=== PATIENT | female | born 1970 | race Caucasian/White ===

== ENCOUNTER 2025-03-11 19:53 | Emergency (ER) | payer MEDICAID ==
[~2025-03-11] VITALS: Ht 157.5 cm; Wt 69.0 kg
[2025-03-11 20:18] VITALS: O2SAT 99
[2025-03-11] MEDS: ACETAMINOPHEN 325MG TABLET PO ONE (21:16)
[2025-03-11] MEDS: KETOROLAC 30MG/ML VIAL IM ONE (21:16)
[2025-03-11 21:31] LABS: CLARITY URINE CLEAR (CLEAR); COLOR URINE YELLOW (YELLOW); GLUCOSE URINE NEGATIVE (NEGATIVE); KETONES URINE NEGATIVE (NEGATIVE); LEUKOCYTE ESTERASE URINE 2+ (NEGATIVE); NITRITE URINE NEGATIVE (NEGATIVE); OCCULT BLOOD URINE NEGATIVE (NEGATIVE); PH URINE 5.5 (4.5-8.0); PROTEIN URINE NEGATIVE (NEGATIVE); SPECIFIC GRAVITY URINE 1.022 (1.005-1.030)
[2025-03-11 22:05] LABS: RBC URINE 0-2 /hpf (0-2); SQUAMOUS EPITHELIAL CELL URINE 1+ /lpf (RARE/1+)
[2025-03-11 22:06] LABS: BACTERIA URINE TRACE
[2025-03-11] MEDS ORDERED: NAPR-679 MT (22:06)
[2025-03-11] MEDS ORDERED: ACET-2708 MT (22:06)
[2025-03-11 22:21] VITALS: BP 105/58; PULSE 71; RESP 19; TEMP 36.7; O2SAT 99
== END 2025-03-11 22:22 | disposition home or self-care (01) ==
LOC: ER 19:53
DX: S39.012A Strain of muscle, fascia and tendon of lower back, initial encounter (principal); E78.00 Pure hypercholesterolemia, unspecified; R33.9 Retention of urine, unspecified; Z79.1 Long term (current) use of non-steroidal anti-inflammatories (NSAID); Z86.73 Personal history of transient ischemic attack (TIA), and cerebral infarction without residual deficits; X58.XXXA Exposure to other specified factors, initial encounter; Y93.89 Activity, other specified; Y92.89 Other specified places as the place of occurrence of the external cause; Y99.8 Other external cause status
CPT/HCPCS: 99284; 81003; 87086; 72100; 96372; J1885

== ENCOUNTER 2025-07-07 17:10 | Emergency (ER) | payer MEDICAID, OTHER ==
[~2025-07-07] VITALS: Ht 157.5 cm; Wt 69.0 kg
[~2025-07-07 17:10] MED LIST: ACET-2708 MT; NAPR-679 MT
[2025-07-07 17:14] VITALS: O2SAT 98
[2025-07-07 17:36] LABS: BASOPHILS % 0.4 % (0.0-2.0); EOSINOPHILS % 2.4 % (0.0-5.0); HEMATOCRIT. 39.3 % (36.0-48.0); HEMOGLOBIN. 12.7 g/dL (12.0-16.0); LYMPHOCYTES % 19.0 % (20.0-50.0); MEAN PLATELET VOLUME 8.4 fl (7.4-10.4); MONOCYTES % 5.0 % (2.0-8.0); NEUTROPHILS % 73.2 % (40.0-76.0); PLATELET 291 x1000/uL (130-400); RED BLOOD CELL COUNT 4.75 mill/uL (4.2-5.4); RED CELL DISTRIBUTION WIDTH 13.3 % (11.6-14.6)
[2025-07-07 18:01] LABS: CREATININE 0.7 mg/dL (0.6-1.0); TROPONIN I HIGH SENSITIVITY < 4 ng/L (3.0-34); UREA NITROGEN BLOOD 11 mg/dL (9-23)
[2025-07-07] MEDS ORDERED: IBUP-1455 MT (18:12)
[2025-07-07] MEDS ORDERED: METH-653 MT (18:12)
[2025-07-07 18:43] VITALS: BP 119/69; PULSE 83; RESP 14; TEMP 36.9; O2SAT 100
[2025-07-07] MEDS: METHOCARBAMOL 500MG TABLET PO ONE (18:44)
[2025-07-07] MEDS: KETOROLAC 30MG/ML VIAL IM ONE (18:44)
== END 2025-07-07 18:44 | disposition home or self-care (01) ==
LOC: ER 17:10
DX: R07.89 Other chest pain (principal); D64.9 Anemia, unspecified; Z86.73 Personal history of transient ischemic attack (TIA), and cerebral infarction without residual deficits; Z98.890 Other specified postprocedural states; Z79.899 Other long term (current) drug therapy
CPT/HCPCS: 36415; 71045; 80048; 84484; 85025; 93005; 99284; 99285

== ENCOUNTER 2025-08-18 08:28 | Emergency (ER) | payer OTHER ==
[~2025-08-18] VITALS: Ht 157.5 cm; Wt 69.0 kg
[~2025-08-18 08:28] MED LIST changes: +IBUP-1455 MT; +METH-653 MT
[2025-08-18 08:34] VITALS: O2SAT 98
[2025-08-18 09:54] VITALS: BP 122/71; PULSE 78; RESP 15; TEMP 36.7; O2SAT 99
== END 2025-08-18 09:56 | disposition home or self-care (01) ==
LOC: ER 08:28
DX: R05.9 Cough, unspecified (principal); I69.392 Facial weakness following cerebral infarction; Z98.890 Other specified postprocedural states; Z79.899 Other long term (current) drug therapy; Z79.1 Long term (current) use of non-steroidal anti-inflammatories (NSAID)
CPT/HCPCS: 71045; 99283